=== PATIENT | female | born 1950 | race Caucasian/White ===

== ENCOUNTER 2016-07-23 10:05 | Day surgery (SDC) | payer BC ==
[~2016-07-23] VITALS: Ht 160 cm; Wt 75.0 kg
[2016-07-23 10:32] VITALS: BP 142/72; PULSE 106; RESP 20; TEMP 99; O2SAT 96
[2016-07-23] MEDS ORDERED: BENZ100 PO (10:40)
[2016-07-23] MEDS ORDERED: LIDOCAINE 1%/EPINEPHrine 1:100,000 SOLN 20 ML VIAL ONE (11:24)
[2016-07-23] MEDS ORDERED: SODIUM CHLOR 0.9% 1000 ML IV SCH (11:30)
[2016-07-23] MEDS ORDERED: MIDAZOLAM HCL 5 MG/5 ML VIAL ONE (11:31)
[2016-07-23] MEDS ORDERED: fentaNYL CITRATE 250 MCG/5 ML AMP ONE (11:31)
--- NOTE | 2016-07-23 12:01 | PD.RAD ---
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
[2016-07-23 12:15] VITALS: BP 102/42; PULSE 100; RESP 20; TEMP 98.5; O2SAT 94
[2016-07-23 12:30] VITALS: BP 130/52; PULSE 72; RESP 18; O2SAT 97
[2016-07-23 13:00] VITALS: BP 118/61; PULSE 70; RESP 18; O2SAT 96
--- NOTE | 2016-07-23 13:06 | RADRPT ---
EXAM DATE/TIME: 07/23/2016 11:45 [facility] COMPARISON: No previous studies available for comparison. INDICATIONS : Mediastinal mass. SEDATION TIME: 15 minutes BIOPSY SITE: Right Chest MEDICATION(S): 1.) 2 mg midazolam (Versed) IV 2.) 100 mcg fentanyl (Sublimaze) IV DEVICE(S): 1.) 18 gauge Temno core biopsy needle MEDICAL HISTORY : None. SURGICAL HISTORY : None. ENCOUNTER: Initial ACUITY: 1 day PAIN SCORE: 1/10 LOCATION: Right chest A total of three core specimen(s) were obtained and sent to the laboratory for pathologic evaluation. PROCEDURE: 1. CT guided chest wall, right biopsy. 2. Conscious sedation with continuous EKG and oximetry monitoring. 3. EKG and oximetry remained stable throughout the procedure. Prior to the procedure informed consent was obtained. Any appropriate prior imaging studies were rev iewed. Using automated exposure control and adjustment of the mA and/or kV according to patient size, radiat ion dose was kept as low as reasonably achievable to obtain optimal diagnostic quality images. The site was prepped in a sterile fashion. Full sterile technique was used, including cap, mask, jaqueline rile gloves and gown and a large sterile sheet. Hand hygiene and 2% chlorhexidine and/or betadine/al cohol prep was utilized per protocol for cutaneous antisepsis. The skin and subcutaneous tissues wer e infiltrated with local anesthetic solution. With CT guidance the previously identified target was localized. Biopsy was performed using the presc ribed needle as above. Adequate hemostasis was obtained with compression at the puncture site. Follow-up CT scan reveals no hemorrhage. The patient tolerated the procedure well and there were no complications. The patient was returned to the Radiology Outpatient Unit in stable condition. CONCLUSION: Uncomplicated CT guided biopsy. Darío Soares MD on July 23, 2016 at 13:04 Board Certified Radiologist. This report was verified electronically.
[2016-07-23 13:30] VITALS: BP 133/60; PULSE 90; RESP 18; O2SAT 94
== END 2016-07-23 14:01 | disposition home or self-care (01) ==
LOC: HRAD 10:05 → HRIP 10:14 → HRAD 14:01
PROVIDERS: ATTEND Family Medicine
DX: R22.2 Localized swelling, mass and lump, trunk (principal); C85.10 Unspecified B-cell lymphoma, unspecified site
CPT/HCPCS: 32405; 77012; 88305; 88341; 88342; J2250; J3010